=== PATIENT | male | born 1995 | race Caucasian/White ===

== ENCOUNTER 2019-08-10 09:26 | Emergency (ER) | payer SELFPAY ==
[~2019-08-10] VITALS: Ht 165.1 cm; Wt 94.3 kg
[2019-08-10 09:31] VITALS: BP 158/85
--- NOTE | 2019-08-10 09:37 | NUR ---
23 Y/O M C/C RIGHT WRIST PAIN X 1 DAY. PER PT WAS HOLDING A 5 GALLON WATER BOTTLE, FELL BACK WARDS AND INJURED WRIST. PT DENIES LOC/HEAD INJURY. CMS WNL;ROM LIMITED. PT NKA. HX GASTRITIS. NO RX. NO NVD. SIDE RAIL X1.
--- NOTE | 2019-08-10 10:13 | NUR ---
PT TAKEN TO RAD VIA WHEELCHAIR
[2019-08-10] MEDS ORDERED: ACETAMINOPHEN EXTRA STRENGTH 500 MG TAB PO ONE (10:15)
[2019-08-10 10:49] VITALS: BP 158/85
== END 2019-08-10 10:49 | disposition home or self-care (01) ==
LOC: MED 09:26
DX: S63.501A Unspecified sprain of right wrist, initial encounter (principal); W18.39XA Other fall on same level, initial encounter; Y93.89 Activity, other specified; Y92.89 Other specified places as the place of occurrence of the external cause; Y99.8 Other external cause status
CPT/HCPCS: 73110; 99283